=== PATIENT | male | born 1955 | race Caucasian/White ===

== ENCOUNTER 2021-04-09 13:01 | Emergency (ER) | payer OTHER ==
[~2021-04-09] VITALS: Ht 180.3 cm; Wt 77.1 kg
[~2021-04-09 13:01] MED LIST: CRUTCH2 USE; FENO160 PO; HYDACE5325 PO; ONDA4 PO; OXYACE5T PO
[2021-04-09 13:34] LABS: BASOPHILS PERCENT AUTO 1 % (0-2); EOSINOPHILS ABSOLUTE AUTO 0.17 K/mm3 (0.00-0.68); EOSINOPHILS PERCENT AUTO 2 % (0-6); Hematocrit 46.1 % (37.0-53.0); Hemoglobin 15.8 g/dL (13.5-17.5); IMMATURE GRAN ABSOLUTE AUTO 0.01 K/mm3 (0.00-0.10); IMMATURE GRAN PERCENT AUTO 0 % (0-1); LYMPHOCYTES ABSOLUTE AUTO 2.73 K/mm3 (0.84-5.20); LYMPHOCYTES PERCENT AUTO 34 % (21-46); MONOCYTES ABSOLUTE AUTO 0.63 K/mm3 (0.16-1.47); MONOCYTES PERCENT AUTO 8 % (4-13); Mean Corpuscular HGB 31.5 pg (26.0-34.0); Mean Corpuscular HGB Conc 34.3 g/dL (31.5-36.5); Mean Corpuscular Volume 92 fL (80-100); Mean Platelet Volume 9.3 fL (9.1-12.4); NEUTROPHILS ABSOLUTE AUTO 4.29 K/mm3 (1.96-9.15); NEUTROPHILS PERCENT AUTO 54 % (41-73); Platelet Count 314 K/mm3 (150-400); RDW Coefficient Variation 11.9 % (11.7-14.2); RDW Standard Deviation 40.4 fL (35.1-46.3); Red Blood Cell Count 5.02 M/mm3 (4.30-5.90); White Blood Cell Count 7.93 K/mm3 (4.00-11.30)
[2021-04-09 14:05] LABS: Alanine Aminotransfer (ALT/SGP 28 U/L (12-78); Albumin/Globulin Ratio 1.1 (0.8-1.8); Alk Phos 109 U/L (50-136); Anion Gap 6 mmol/L (6-16); Aspartate Aminotrans (AST/SGOT 25 U/L (12-37); Bilirubin, Total 0.7 mg/dL (0.1-1.0); Blood Urea Nitrogen 16 mg/dL (8-24); Bun/Creatinine Ratio 16.5 (12.0-20.0); CO2, Blood 25 mmol/L (21-32); Calcium, Blood 9.1 mg/dL (8.5-10.1); Chloride, Blood 107 mmol/L (98-108); Creatinine, Blood 0.97 mg/dL (0.60-1.20); Globulin, Blood 3.5 g/dL (2.2-4.0); Glomerular Filtration Rate >60 (60-); Glucose, Blood 103 mg/dL (70-99); Sodium, Blood 138 mmol/L (136-145); Total Protein, Blood 7.5 g/dL (6.4-8.2)
[2021-04-09] MEDS ORDERED: Prinivil10 MG PO (19:13)
[2021-04-09] MEDS ORDERED: FISH OIL 1,0001 EAC8 PO (19:14)
== END 2021-04-09 21:50 | disposition home or self-care (01) ==
LOC: ER 13:01
PROVIDERS: Physician Assistant
DX: G45.3 Amaurosis fugax (principal); D32.0 Benign neoplasm of cerebral meninges; I10 Essential (primary) hypertension; Z79.899 Other long term (current) drug therapy
CPT/HCPCS: 36415; 70450; 70496; 70498; 80053; 85025; 93005; 93010; 99284-25; Q9967

== ENCOUNTER 2022-06-08 08:37 | Day surgery (SDC) | payer OTHER ==
[~2022-06-08] VITALS: Ht 182.9 cm; Wt 74.6 kg
[~2022-06-08 08:37] MED LIST changes: +FISH OIL 1,0001 EAC8 PO; +Prinivil10 MG PO; +ZYRTEC10 M2 PO
--- NOTE | 2022-06-08 08:56 | NUR ---
Ambulatory in Day Surgery History, Chart, Medications and Allergies reviewed before start of procedure.Patient confirms NPO status and agrees with scheduled surgery.
[2022-06-08] MEDS ORDERED: AMLO5 PO (09:03)
[2022-06-08] MEDS ORDERED: ALBU90OI INH (09:05)
[2022-06-08] MEDS ORDERED: ASPI325 PO (09:06)
[2022-06-08] MEDS ORDERED: MONT10T PO (09:06)
--- NOTE | 2022-06-08 09:44 | NUR ---
Pre-Op teaching done. Pt verbalizes understanding.
--- NOTE | 2022-06-08 12:24 | NUR ---
PT RESTING QUIETLY. RIGHT KNEE AQUACEL DRSG INTACT. DERMATOMES SENSATIVE LEVEL AT L3. UNABLE TO WIGGLE TOES. TOES PINK/WARM w/+2 CAP REFILL. AFEBRILE/VSS. APPEARS COMFORTABLE & RELAXED. REPORT GIVEN TO JACQUELYN LOWE RN. NO ACUTE CHANGES AT END OF MY PACU CARE.
--- NOTE | 2022-06-08 12:38 | NUR ---
REPORT RECEIVED FROM JEANETTE CHEN. PT RESTING. HIP XRAY PERFORMED. VITALS STABLE, BP IS LOW. OPENED FLUIDS TO PROVIDE VOLUME. PT EASILY AWAKEN BY VOICE. NO COMPLAINTS OF PAIN OR NAUSEA.
--- NOTE | 2022-06-08 19:37 | NUR ---
SHIFT SUMMARY PT A&OX4, VSS/RA, JURGEN PO, VOIDING, PAIN MANAGED PER EMAR, AMB SBA FWW/GB, UP TO CHAIR AFTER PHYSICAL THERAPY BRITT'Dilip WILL REPORT TO CONNOR REID.
[2022-06-09 04:59] LABS: BASOPHILS ABSOLUTE AUTO 0.09 K/mm3 (0.00-0.23); BASOPHILS PERCENT AUTO 1 % (0-2); EOSINOPHILS ABSOLUTE AUTO 0.39 K/mm3 (0.00-0.68); EOSINOPHILS PERCENT AUTO 3 % (0-6); Hematocrit 40.3 % (37.0-53.0); IMMATURE GRAN ABSOLUTE AUTO 0.03 K/mm3 (0.00-0.10); IMMATURE GRAN PERCENT AUTO 0 % (0-1); LYMPHOCYTES ABSOLUTE AUTO 2.63 K/mm3 (0.84-5.20); LYMPHOCYTES PERCENT AUTO 22 % (21-46); MONOCYTES ABSOLUTE AUTO 0.92 K/mm3 (0.16-1.47); MONOCYTES PERCENT AUTO 8 % (4-13); Mean Corpuscular HGB 30.8 pg (26.0-34.0); Mean Corpuscular HGB Conc 32.3 g/dL (31.5-36.5); Mean Corpuscular Volume 96 fL (80-100); Mean Platelet Volume 9.5 fL (9.1-12.4); NEUTROPHILS ABSOLUTE AUTO 7.67 K/mm3 (1.96-9.15); NEUTROPHILS PERCENT AUTO 65 % (41-73); Platelet Count 287 K/mm3 (150-400); RDW Coefficient Variation 12.3 % (11.7-14.2); RDW Standard Deviation 43.1 fL (35.1-46.3); Red Blood Cell Count 4.22 M/mm3 (4.30-5.90); White Blood Cell Count 11.73 K/mm3 (4.00-11.30)
[2022-06-09 05:11] LABS: Bun/Creatinine Ratio 20.8 (12.0-20.0); Calcium, Blood 8.7 mg/dL (8.5-10.1); Creatinine, Blood 1.06 mg/dL (0.60-1.20); Magnesium, Blood 2.2 mg/dL (1.6-2.4); Potassium, Blood 4.1 mmol/L (3.5-5.5)
--- NOTE | 2022-06-09 07:59 | NUR ---
POD 1 S/P R TKA. PT VSS T/O NIGHT. DRESSING CDI. PT DENIED N/T, CAP REFILL WNL. PAIN MGD W/2 OXYCODONE AND TORADOL W/REP RELIEF. PT JURGEN REG PO, DENIED N/V, IS VOIDING URIEN W/O DIFFICULTY. PT AMB IN HALLS W/FWW+SBA, JURGEN WEOOL PLAN TO MOBILIZE W/PT AND D/C HOME.
[2022-06-09] MEDS ORDERED: ACET500 PO (09:57)
[2022-06-09] MEDS ORDERED: OXAYDO5 M3 PO (10:00)
--- NOTE | 2022-06-09 11:11 | NUR ---
DISCHARGE SUMMARY PT A&OX4, VSS/RA, JURGEN PO, VOIDING WELL, PAIN MANAGED, AMB SBA FWW/INDEPENDENT TO DRESS AND DAILY ADLS, IV DC'D. DC INS PROVIDED. PT REP UNDERSTANDING THOSE INSTRUCTIONS INCLUDING ASA, PAIN MED AT [facility], AQUACEL DRESSING CHANGES WEEKLY, SHORT FREQ AMB WITH FWW/REST ICE AND ELEVATE, FU WITH PT OUTPT AND SURGEON. LEFT FLOOR VIA WC WITH [employer]PER TENDER TO GO HOME WITH FRIEND, STAYING WITH MOM, WITH ALL PERSONAL POSSESSIONS INCLUDING AQUACEL DRESSINGS AND DC PACKET.
== END 2022-06-09 12:00 | disposition home or self-care (01) ==
LOC: ORSCMMR 08:37 → ORD 11:00 → ORSCMMR 11:00 → SURS 12:54 → ORSCMMR 06-09 12:00
PROVIDERS: Orthopaedic Surgery
PROC: 0SRC0JA Replacement of Right Knee Joint with Synthetic Substitute, Uncemented, Open Approach (ICD-10-PCS; principal; 2022-06-08 07:30)
PROC: 8E0Y0CZ Robotic Assisted Procedure of Lower Extremity, Open Approach (ICD-10-PCS; principal; 2022-06-08 07:30)
DX: M17.11 Unilateral primary osteoarthritis, right knee (principal); I10 Essential (primary) hypertension; J44.9 Chronic obstructive pulmonary disease, unspecified; Z79.899 Other long term (current) drug therapy
CPT/HCPCS: 27447; 20985; S2900; 36415; 73560-RT; 80048; 83735; 85025; 97110; 97116; 97162; A9270; C1776; J0171; J0690; J0735; J1885; J2250; J2704; J2795; J3010; J7120

== ENCOUNTER 2023-12-09 06:51 | Day surgery (SDC) | payer OTHER ==
[~2023-12-09] VITALS: Ht 182.9 cm; Wt 77.5 kg
[~2023-12-09 06:51] MED LIST changes: +ACET500 PO; +ALBU90OI INH; +AMLO5 PO; +ASPI325 PO; +Balanced Salt Epinephrine Irrigation Solution 500 mL IR SCH; +Lidocaine HCl/Pf 1% 5 ML VIAL ONE; +Lidocaine HCl/Pf 1% 5 ML VIAL XX SCH; +MOME220I; +MONT10T PO; +Moxifloxacin HCL 0.5 MG/0.1 ML 0.4MLSYR RIGHTEYE SCH; +NS 500 ML IV ONE; +OXAYDO5 M3 PO; +PHENYLEPHRINE\\TROPICAMIDE\\TETRACAINE OPHTHALMIC DILATING SOLN RIGHTEYE PRN; +Povidone-Iodine 450 DROP/30 ML Solution ONE; +Povidone-Iodine 450 DROP/30 ML Solution RIGHTEYE SCH; +STIOLTO RESPIMAT4 G2 IH; +TAMS.4ER PO; +Triamcinolone Inj Susp 40 MG / ML 1ML Vial INJ SCH; +Triamcinolone Inj Susp 40 MG / ML 1ML Vial ONE
[2023-12-09] MEDS ORDERED: NS 1,000 ML IV ONE (07:16)
[2023-12-09] MEDS ORDERED: Midazolam HCl 1MG / ML 2ML Vial ONE (07:52)
[2023-12-09] MEDS ORDERED: Tetracaine HCl 0.5% Opth Soln 15 ml RIGHTEYE ONE (07:58)
[2023-12-09 08:32] VITALS: BP 111/73
== END 2023-12-09 08:50 | disposition home or self-care (01) ==
LOC: ORSCSDS 06:51
PROVIDERS: Ophthalmology
PROC: 08RJ3JZ Replacement of Right Lens with Synthetic Substitute, Percutaneous Approach (ICD-10-PCS; principal; 2023-12-09 08:00)
DX: H25.11 Age-related nuclear cataract, right eye (principal); H52.201 Unspecified astigmatism, right eye; Z96.1 Presence of intraocular lens; I10 Essential (primary) hypertension; J44.9 Chronic obstructive pulmonary disease, unspecified; Z79.899 Other long term (current) drug therapy; Z79.82 Long term (current) use of aspirin
CPT/HCPCS: J2001; J2250; J3301; J7040; V2632